=== PATIENT | female | born 1990 | race Caucasian/White ===

== ENCOUNTER 2018-12-23 23:37 | Emergency (ER) | payer MEDICAID ==
[~2018-12-23] VITALS: Ht 152.4 cm; Wt 70.8 kg
[2018-12-23 23:42] VITALS: Ht 152.4 cm; Wt 70.8 kg
[2018-12-24 01:50] VITALS: BP 132/66
== END 2018-12-24 01:51 | disposition home or self-care (01) ==
LOC: ED 23:37
DX: J40 Bronchitis, not specified as acute or chronic (principal)
CPT/HCPCS: J1885

== ENCOUNTER 2019-11-21 21:34 | Emergency (ER) | payer OTHER ==
[~2019-11-21] VITALS: Ht 152.4 cm; Wt 61.3 kg
[2019-11-21 22:04] VITALS: Ht 152.4 cm; Wt 61.3 kg
[2019-11-22 01:04] VITALS: BP 113/78
== END 2019-11-22 01:05 | disposition home or self-care (01) ==
LOC: ED 21:34
DX: S61.412A Laceration without foreign body of left hand, initial encounter (principal); W22.8XXA Striking against or struck by other objects, initial encounter; Y93.89 Activity, other specified; Y92.89 Other specified places as the place of occurrence of the external cause; Y99.8 Other external cause status
CPT/HCPCS: 90715; J2001; Q0092

== ENCOUNTER 2019-12-02 17:15 | Emergency (ER) | payer OTHER ==
[~2019-12-02] VITALS: Ht 152.4 cm; Wt 62.6 kg
[2019-12-02 17:27] VITALS: Ht 152.4 cm; Wt 62.6 kg
[2019-12-02 20:19] VITALS: BP 110/59
== END 2019-12-02 20:19 | disposition home or self-care (01) ==
LOC: ED 17:15
DX: S61.411D Laceration without foreign body of right hand, subsequent encounter (principal); Z86.2 Personal history of diseases of the blood and blood-forming organs and certain disorders involving the immune mechanism; X58.XXXD Exposure to other specified factors, subsequent encounter